=== PATIENT | male | born 1985 | race Caucasian/White ===

== ENCOUNTER 2022-11-02 21:32 | Emergency (ER) | payer OTHER ==
[~2022-11-02] VITALS: Ht 182.9 cm; Wt 104.3 kg
--- NOTE | 2022-11-02 22:12 | NUR ---
PT IN BED 7 BREATHING IS EVEN AND UNLABORED. C/O CHEST PAIN SINCE YESTERDAY ADMITS TO SMOKING NICOTINE VAP PEN. PAIN 5/10 RADIATING THROUGH TO THE BACK OF THE CHEST. PT ATTACHED TO BEDSIDE MONITOR VITAL WNL. BED IN HIGH FOWLERS SIDE RAILES UP BED LOCKED
[2022-11-02 22:16] LABS: BASOPHILS # (AUTO) 0.1 K/uL (0.0-0.2); BASOPHILS % (AUTO) 1.1 % (0.0-2.0); EOSINOPHILS % (AUTO) 2.1 % (0.0-6.0); HEMATOCRIT 41 % (39-51); HEMOGLOBIN 14.1 g/dL (13.5-17.5); LYMPHOCYTES # (AUTO) 2.7 K/uL (0.8-4.8); LYMPHOCYTES % (AUTO) 37.5 % (20.0-44.0); MEAN CORPUSCULAR HGB CONC 34 g/dl (31.0-36.0); MEAN CORPUSCULAR VOLUME 86 fL (80-96); MONOCYTES # (AUTO) 0.6 K/uL (0.1-1.30); MONOCYTES % (AUTO) 8.3 % (2.0-12.0); NEUTROPHILS # (AUTO) 3.7 K/uL (1.8-8.9); PLATELET COUNT (AUTO) 357 K/uL (150-450); RED BLOOD CELL COUNT(AUTO) 4.72 MIL/uL (4.5-6.0); WHITE BLOOD COUNT (AUTO) 7.3 K/uL (4.3-11.0)
[2022-11-02 22:27] LABS: CALCIUM, SERUM 8.9 mg/dL (8.5-10.1); CARBON DIOXIDE 27 mmol/L (21-32); CHLORIDE 104 mmol/L (98-107); CREATININE 1.1 mg/dL (0.6-1.3); GLUCOSE 108 mg/dL (74-106); POTASSIUM 3.6 mmol/L (3.5-5.1); SODIUM SERUM 139 mmol/L (136-145); UREA NITROGEN, BLOOD 16 mg/dL (7-18)
--- NOTE | 2022-11-02 23:02 | NUR ---
PT TAUGHT REGARDING CAUSES OF CHEST PAIN. IV CATH D/C'ED CATHETER INTACT AND DRESSED
[2022-11-02 23:03] VITALS: BP 122/69
== END 2022-11-02 23:04 | disposition home or self-care (01) ==
LOC: ER 21:37
DX: R07.9 Chest pain, unspecified (principal); Z60.2 Problems related to living alone
CPT/HCPCS: 36415; 71045-TC; 80048-TC; 83880; 84484-TC; 85025-TC